=== PATIENT | female | born 2000 | race African-American/Black ===

== ENCOUNTER 2019-11-15 17:27 | Emergency (ER) | payer OTHER ==
[2019-11-15 18:56] LABS: ABS Eosinophils 0.1 10^3/ul (0-0.6); ABS Lymphocytes 2.1 10^3/ul (1.0-4.8); ABS Monocytes 0.5 10^3/ul (0-0.8); ABS Neutrophils 2.4 10^3/ul (1.5-7.7); Eosinophil % 1.1 %; Hematocrit 39 % (35-47); Hemoglobin 13.2 g/dL (12.0-16.0); Lymphocyte % 42.1 %; Mean Corpuscular HGB Conc 34 g/dL (31-36); Mean Corpuscular Hemoglobin 30 pg (27-31); Mean Corpuscular Volume 89 fL (80-97); Mean Platelet Volume 8.7 fL (7.4-10.4); Nucleated Red Blood Cells % 0.1; Platelet Count 190 10^3/uL (150-450); Red Blood Count 4.35 10^6 /uL (3.70-4.87); Red Cell Distribution Width 13 % (10-15); White Blood Count 5.1 10^3/uL (3.5-10.8)
[2019-11-15 19:24] LABS: HCG Pregnancy < 0.60 mIU/mL
[2019-11-15 19:40] LABS: TSH (Thyroid Stimulating Horm) 0.87 mcIU/mL (0.34-5.60)
[2019-11-15 19:43] LABS: ALT 14 U/L (7-52); AST 26 U/L (13-39); Albumin 4.2 g/dL (3.2-5.2); Albumin/Globulin Ratio 1.4 (1-3); Alkaline Phosphatase 55 U/L (34-104); Anion Gap 8 mmol/L (2-11); BUN/Creatinine Ratio 18.8 (8-20); Blood Urea Nitrogen 16 mg/dL (6-24); C Reactive Protein 2.38 mg/L (<8.01); CO2 Carbon Dioxide 28 mmol/L (22-32); Calcium 8.9 mg/dL (8.6-10.3); Chloride 104 mmol/L (101-111); EGFR African American 102.2 (>60); EGFR Non-African American 84.4 (>60); Glucose 79 mg/dL (70-100); Potassium 3.9 mmol/L (3.5-5.0); Sodium 140 mmol/L (135-145); Total Protein 7.2 g/dL (6.4-8.9)
--- NOTE | 2019-11-15 19:57 | ED ---
Complex/Multi-Sys Presentation - HPI Summary HPI Summary: 19 year old female presents with fatigue for the past couple weeks. States that she's had no appetite. She feels very lethargic. Patient has not been sleeping well. she admits to occasionally shortness of breath. Denies any cough. No chest pain. States she feels like her anemia is acting up. She took two doses of iron. She denies any heavy menstrual bleeding. No urinary symptoms. No recent illness. - History Of Current Complaint Chief Complaint: EDGeneral Time Seen by Provider: 11/15/19 19:23 - Allergies/Home Medications Allergies/Adverse Reactions: Allergies Allergy/AdvReac Type Severity Reaction Status Date / Time No Known Allergies Allergy Verified 11/15/19 17:30 Home Medications: Home Medications NK [No Home Medications Reported] 11/15/19 [History Confirmed 11/15/19] PMH/Surg Hx/FS Hx/Imm Hx Endocrine/Hematology History: Denies: Hx Anticoagulant Therapy Respiratory History: Denies: Hx Asthma - Immunization History Immunizations Up to Date: Yes Infectious Disease History: No Infectious Disease History: Denies: Traveled Outside the [place] in Last 30 Days - Family History Known Family History: Positive: Non-Contributory - Social History Alcohol Use: None Substance Use Type: Reports: None Smoking Status (MU): Never Smoked Tobacco Review of Systems Positive: Fatigue. Negative: Fever Negative: Chest Pain Positive: Shortness Of Breath. Negative: Cough Positive: Weakness All Other Systems Reviewed And Are Negative: Yes Physical Exam Triage Information Reviewed: Yes Vital Signs On Initial Exam: Initial Vitals Temp Pulse Resp BP Pulse Ox 98.6 F 78 18 117/71 98 11/15/19 17:29 11/15/19 17:29 11/15/19 17:29 11/15/19 17:29 11/15/19 17:29 Vital Signs Reviewed: Yes Appearance: Positive: Well-Appearing Skin: Positive: Warm, Dry Head/Face: Positive: Normal Head/Face Inspection Eyes: Positive: Normal, EOMI, KATHRYN, Conjunctiva Clear ENT: Positive: Normal ENT inspection, Pharynx normal, TMs normal Respiratory/Lung Sounds: Positive: Clear to Auscultation, Breath Sounds Present Cardiovascular: Positive: Normal, RRR Abdomen Description: Positive: Nontender, Soft Bowel Sounds: Positive: Present Musculoskeletal: Positive: Normal Neurological: Positive: Normal Psychiatric: Positive: Normal Procedures - Sedation Patient Received Moderate/Deep Sedation with Procedure: No Diagnostics - Vital Signs Vital Signs Temp Pulse Resp BP Pulse Ox 11/15/19 17:29 98.6 F 78 18 117/71 98 - Laboratory Lab Results: Lab Results 11/15/19 11/15/19 Range/Units 18:46 18:46 WBC 5.1 (3.5-10.8) 10^3/uL RBC 4.35 (3.70-4.87) 10^6 /uL Hgb 13.2 (12.0-16.0) g/dL Hct 39 (35-47) % MCV 89 (80-97) fL MCH 30 (27-31) pg MCHC 34 (31-36) g/dL RDW 13 (10-15) % Plt Count 190 (150-450) 10^3/uL MPV 8.7 (7.4-10.4) fL Neut % (Auto) 46.8 % Lymph % (Auto) 42.1 % Preble % (Auto) 9.6 % Eos % (Auto) 1.1 % Baso % (Auto) 0.4 % Absolute Neuts (auto) 2.4 (1.5-7.7) 10^3/ul Absolute Lymphs (auto) 2.1 (1.0-4.8) 10^3/ul Absolute Monos (auto) 0.5 (0-0.8) 10^3/ul Absolute Eos (auto) 0.1 (0-0.6) 10^3/ul Absolute Basos (auto) 0.0 (0-0.2) 10^3/ul Absolute Nucleated RBC 0.0 10^3/ul Nucleated RBC % 0.1 Sodium 140 (135-145) mmol/L Potassium 3.9 (3.5-5.0) mmol/L Chloride 104 (101-111) mmol/L Carbon Dioxide 28 (22-32) mmol/L Anion Gap 8 (2-11) mmol/L BUN 16 (6-24) mg/dL Creatinine 0.85 (0.51-0.95) mg/dL Est GFR ( Amer) 102.2 (>60) Est GFR (Non-Af Amer) 84.4 (>60) BUN/Creatinine Ratio 18.8 (8-20) Glucose 79 (70-100) mg/dL Calcium 8.9 (8.6-10.3) mg/dL Total Bilirubin 0.30 (0.2-1.0) mg/dL AST 26 (13-39) U/L ALT 14 (7-52) U/L Alkaline Phosphatase 55 (34-104) U/L C-Reactive Protein 2.38 (<8.01) mg/L Total Protein 7.2 (6.4-8.9) g/dL Albumin 4.2 (3.2-5.2) g/dL Globulin 3.0 (2-4) g/dL Albumin/Globulin Ratio 1.4 (1-3) TSH 0.87 (0.34-5.60) mcIU/mL Beta HCG, Quant < 0.60 mIU/mL Result Diagrams: 11/15/19 18:46 11/15/19 18:46 Lab Statement: Any lab studies that have been ordered have been reviewed, and results considered in the medical decision making process. Complex Multi-Symp Course/Dx Course Of Treatment: 19 year old female presents with fatigue for the past couple weeks. States that she's had no appetite. She feels very lethargic. Patient has not been sleeping well. she admits to occasionally shortness of breath. Denies any cough. No chest pain. States she feels like her anemia is acting up. She took two doses of iron. She denies any heavy menstrual bleeding. No urinary symptoms. No recent illness. On exam has normal physical exam. Laboratory within normal limits. Patient is not anemic. Discussed do not have a reason for symptoms. told follow up with Primary. Patient understands and agrees with plan. - Diagnoses Differential Diagnoses/HQI/PQRI: Metabolic Abnormality, Sepsis, Urinary Tract Infection Provider Diagnoses: Fatigue Discharge ED - Sign-Out/Discharge Documenting (check all that apply): Patient Departure - Discharge Plan Condition: Good Disposition: HOME Patient Education Materials: Fatigue (ED) Forms: *School Release Referrals: [facility] [Outside] Additional Instructions: establish care with primary Drink plenty of fluids and eat a balanced diet manage stress Return to ED if develop any new or worsening symptoms - Billing Disposition and Condition Condition: GOOD Disposition: Home
[2019-11-15 20:02] VITALS: BP 110/56
== END 2019-11-15 20:01 | disposition home or self-care (01) ==
LOC: ED 17:27
DX: R53.83 Other fatigue (principal); R06.02 Shortness of breath; Z32.02 Encounter for pregnancy test, result negative
CPT/HCPCS: 36415; 80053; 84443; 84702; 85025; 86140; 99283